=== PATIENT | female | born 1985 | race African-American/Black ===

== ENCOUNTER → 2019-02-21 | Outpatient (CLI) | payer SELFPAY ==
--- NOTE | 2019-02-22 05:06 | REP ---
Clinical: Dating and viability. Technique: Transabdominal first trimester obstetrical ultrasound with color Doppler evaluation. Findings: Early intrauterine identified. Gestational sac with yolk sac and pole noted. CRL of 17 mm corresponds to 8 weeks 1 day gestational age. Estimated date of delivery at 10/02/2019. heart rate equals 158 beats per minute. No gross abnormalities are identified. Maternal ovaries are normal in appearance. No pelvic free fluid. Impression: Single live early intrauterine at 8 weeks 1 day gestational age. Complete anatomical assessment should be performed at 19-20 weeks. Electronically Signed by Moe Puri MD 02/22/2019 04:59 A
== END ==
LOC: M RAD 10:01
PROVIDERS: ATTEND Physician Assistant
DX: Z33.1 Pregnant state, incidental (principal); R11.2 Nausea with vomiting, unspecified; Z3A.08 8 weeks gestation of pregnancy